=== PATIENT | male | born 1945 | race Caucasian/White ===

== ENCOUNTER → 2017-05-21 08:55 | Outpatient (CLI) | payer MEDICARE, SELFPAY ==
[2017-05-21 09:37] LABS: Hematocrit 40.9 % (40-54); Hemoglobin 13.1 g/dl (13.0-16.5); Mean Corpuscular Volume 90.5 fL (80-94); Mean Platelet Vol. 10.6 fl (6.2-12.0); Platelet Count 222 K/mm3 (150-450); RBC Distribution Width CV 13.4 % (11.6-14.6); RBC Distribution Width SD 43.7 fl (35.1-43.9); Red Blood Count 4.52 M/mm3 (4.6-6.2); Scan Indicated on CBC? Y/N NO; White Blood Count 6.3 K/mm3 (4.4-11.0)
[2017-05-21 10:00] LABS: Hemoglobin A1c 7.3 % (4.2-6.3)
[2017-05-21 10:19] LABS: AST(SGOT) 14 U/L (15-37); Alanine Aminotransfer ALT/SGPT 19 U/L (16-61); Albumin, Serum 3.7 g/dL (3.2-5.0); Alkaline Phosphatase 70 U/L (45-117); Anion Gap 6 (5-15); BUN 16 mg/dL (7-18); BUN/Creat Ratio 20.4 RATIO (10-20); Calcium,Total 8.8 mg/dL (8.5-10.1); Chloride 102 mmol/L (98-107); Cholesterol 129 mg/dL (200); Creatinine, Serum 0.78 mg/dL (0.70-1.30); EST Glomerular Filtration Rate 103 mL/min (>60); Est Glom Filt Rate - Afr Amer 125 mL/min (>60); Ferritin 14 ng/mL (26-388); Globulin 3.6 g/dL (2.2-4.2); Glucose 111 mg/dL (74-106); High Density Lipoprotein 28 mg/dL; Iron 88 ug/dL (65-175); Iron Binding Capacity,Total 348 ug/dL (250-450); Potassium 4.5 mmol/L (3.5-5.1); Protein, Total 7.3 g/dL (6.4-8.2); Sodium Level 142 mmol/L (136-145); Triglycerides 205 mg/dL; Very Low Density Lipoprotein 41 mg/dL (5-40)
[2017-05-21 10:38] LABS: PTHIN 62.8 pg/mL (18.4-80.1)
[2017-05-21 10:40] LABS: Vitamin B12 205 pg/mL (211-911); Vitamin D,25 Hydroxy 15.8 ng/mL (29.95-100.01)
[2017-05-24 12:23] LABS: Copper, Serum or Plasma 102 ug/dL (72-166); Vitamin B1, Thiamine 119.6 nmol/L (66.5-200.0); Zinc, Plasma or Serum 73 ug/dL (56-134)
== END ==
PROVIDERS: Family Provider Family Medicine; PCP Family Medicine; Visit Provider Family Medicine
DX: Z98.84 Bariatric surgery status (principal); E11.9 Type 2 diabetes mellitus without complications
CPT/HCPCS: 36415; 80053; 80061; 82306; 82525; 82607; 82728; 82746; 83036; 83540; 83550; 83970; 84425; 84630; 85027

== ENCOUNTER → 2017-06-14 13:02 | Outpatient (CLI) | payer MEDICARE, SELFPAY ==
--- NOTE | 2017-06-14 13:03 | RAD_ITS ---
STUDY: X-RAY - RIGHT KNEE REASON FOR EXAM: Male, 71 years old. Right knee pain. TECHNIQUE: 4 view(s) of the knee. COMPARISON: None. FINDINGS: There is generalized osteopenia. There is moderate to severe arthrosis of the medial femorotibial compartment. There is mild arthrosis of the lateral femorotibial compartment. There is moderate to severe arthrosis of the patellofemoral compartment with lateral subluxation and tilt of the patella. There is a small joint effusion with multiple small intra-articular osteochondral bodies. There is vascular calcification. RAD/Knee 4 or More Views IMPRESSION: Osteopenia with tricompartmental osteoarthritic changes as described. Small effusion with multiple intra-articular osteochondral bodies. Electronically Signed: Bienvenido Case MD at 11:31 EDT , Service support ,
== END ==
PROVIDERS: Family Provider Family Medicine; PCP Family Medicine; Visit Provider Orthopaedic Surgery
DX: M25.561 Pain in right knee (principal)
CPT/HCPCS: 73564

== ENCOUNTER → 2017-10-23 08:35 | Outpatient (CLI) | payer MEDICARE, SELFPAY | PROVIDERS: Family Provider Family Medicine; PCP Family Medicine | DX: I49.9 Cardiac arrhythmia, unspecified (principal) | CPT/HCPCS: 93005 ==

== ENCOUNTER → 2019-09-29 06:56 | Outpatient (CLI) | payer MEDICARE, MEDICAID, SELFPAY ==
[2019-09-29 10:42] LABS: Hematocrit 40.5 % (40-54); Hemoglobin 12.8 g/dL (13.0-16.5); Mean Corp Hgb Conc 31.6 g/dL (32-36); Mean Corpuscular Hgb 29.6 pg (27.0-32.0); Mean Corpuscular Volume 93.5 fL (80-94); Mean Platelet Vol. 11.2 fl (6.2-12.0); Platelet Count 241 K/mm3 (150-450); RBC Distribution Width CV 12.3 % (11.6-14.6); RBC Distribution Width SD 42.7 fl (35.1-43.9); Red Blood Count 4.33 M/mm3 (4.6-6.2); White Blood Count 6.6 K/mm3 (4.4-11.0)
[2019-09-29 11:07] LABS: Hemoglobin A1c 7.5 % (3.8-5.6)
[2019-09-29 11:37] LABS: Vitamin B12 270 pg/mL (211-911); Vitamin D,25 Hydroxy 41.2 ng/mL
[2019-09-29 11:42] LABS: ALB/GLOB Ratio 1.1 RATIO (0.9-2.4); AST(SGOT) 19 U/L (15-37); Alanine Aminotransfer ALT/SGPT 20 U/L (16-61); Albumin, Serum 3.8 g/dL (3.2-5.0); Alkaline Phosphatase 62 U/L (45-117); Anion Gap 6 (5-15); BUN 11 mg/dL (7-18); BUN/Creat Ratio 16.5 RATIO (10-20); Calcium,Total 8.8 mg/dL (8.5-10.1); Chloride 104 mmol/L (98-107); Cholesterol 132 mg/dL (200); Creatinine, Serum 0.66 mg/dL (0.70-1.30); EST Glomerular Filtration Rate 124 mL/min (>60); Est Glom Filt Rate - Afr Amer 150 mL/min (>60); Globulin 3.6 g/dL (2.2-4.2); Glucose 119 mg/dL (74-106); High Density Lipoprotein 31 mg/dL; Magnesium 2.1 mg/dL (1.6-2.6); Potassium 3.9 mmol/L (3.5-5.1); Protein, Total 7.4 g/dL (6.4-8.2); Sodium Level 140 mmol/L (136-145); Thyroid Stim Hormone (TSH) 2.79 uIU/mL (0.358-3.74); Triglycerides 189 mg/dL; Very Low Density Lipoprotein 38 mg/dL (5-40)
== END ==
PROVIDERS: PCP Student in an Organized Health Care Education/Training Program; Referring Provider Student in an Organized Health Care Education/Training Program; Visit Provider Student in an Organized Health Care Education/Training Program
DX: E53.8 Deficiency of other specified B group vitamins (principal); N40.1 Benign prostatic hyperplasia with lower urinary tract symptoms; E11.9 Type 2 diabetes mellitus without complications; E83.42 Hypomagnesemia; E55.9 Vitamin D deficiency, unspecified; R80.9 Proteinuria, unspecified
CPT/HCPCS: 36415; 80053; 80061; 82306; 82607; 83036; 83735; 84153; 84443; 85027

== ENCOUNTER 2019-10-30 10:00 | Outpatient (RCR) | payer MEDICARE, MEDICAID, SELFPAY ==
--- NOTE | 2019-10-21 10:14 | HP.PTEVAL_ITS ---
Patient's Visit Information MARIETTA SMALLWOOD is a 74 year old M referred to Physical Therapy by Dr. Miguel Huntley DO with a diagnosis of PAIN IN LEFT SHOULDER. Date of Evaluation: 10/21/19 Physical Therapist: Negrito Morocho, PT, Cert MDT, OCS - Visit Plan Frequency: 2x /Week Duration: 4 Weeks Plan: PT INTERVENTIONS ROM SHOULDER ,MANUAL THERAPY G-H,STRENGTHENING RTC/SCAPULAR,CERVICAL/POSTURAL EX'S AND MODALTIES NEEDED - Subjective This 74 y/o male presents to physical therapy with left shoulder pain .Patient has had left shoulder pain for about [address] x-rays OA ,no MEDS. Recommended PT. No trauma. Location left shoulder pain cervical spine and scapular. Aggravating factors lifting ,[place] activies ,hanging down alot ,sleepin on left side. Aleviating factors Ibprobrin. Patient has occassional parathesia/tingling . Patient symptoms affects ADLS',housework tasks and function.Patient condtion affects QOL.Patient has Silver Sneakers. SOCIAL: . VOCATION: retired - Pain Left Shoulder Pain Intensity (Out of 10): 5 Pain Intensity Range: 10 Left Neck Pain Intensity (Out of 10): 3 Pain Intensity Range: 10 - Objective POSTURE:mild foward posture,rounded shoulders mod ,foward head. NEURO: denies parathesia/tingling,reflexes C5-6-7 1/. PALAPTION: UT/levator. AROM SHOULDER : flexion 100 degrees,abduction 90 degrees,ER 65 degrees,S1 pain palnes. PROM: shoulder flexion/abd 150 degrees ERP. CAPSULAR ASSESSORY : mod limited all planes. CERVICAL ROM: flexion min loss,lateral flexion/rotation mod loss,extension mod loss. MMT: RTC 4/5 ,deltoid 4-5/ - Special Tests C/S Radiculapathy - Left Upper limb tension test: Negative C/S Radiculapathy - Right Upper limb tension test: Negative C/S Radiculapathy - Left Spurlings: Positive C/S Radiculapathy - Right Spurlings: Negative C/S Radiculapathy - Left Cervical distraction: Negative C/S Radiculapathy - Right Cervical distraction: Negative Sharp Jonna: Negative Vertebral Artery Test: Negative Alar Ligament Test: Negative L Shoulder External Rotation Lag Test - RC Tear: Negative L Shoulder Lift Off Test - Subscapular Tear: Negative L Shoulder Drop Sign - IS Test: Negative L Shoulder Empty Can - SS: Negative L Shoulder Belly Press - SupScap: Negative L Shoulder Neer - Impingement: Positive L Shoulder Huffman Jorge Alberto - Impingement: Positive L Shoulder Shrug Sign - OA/Adhesive Capsulitis: Positive - Goals Goal 1:: Patient be I with HEP Goal Time Frame: 4-6 Weeks Goal 2:: Improve posture for ADL'S Goal Time Frame: 4-6 Weeks Goal 3:: Patient to improve left shoulder ROM 125 degrees flexion/abd and ER 80 degrees to improve function. Goal Time Frame: 4-6 Weeks Goal 4:: Patient to decrease left shoulder pain by 50% or > to improve function. Goal Time Frame: 4-6 Weeks Goal 5:: Patient to improve quick dash shoulder 5 points or> to improve QOL AND FUNCTION Goal Time Frame: 4-6 Weeks - Rehabilitation Potential Physical Therapy Diagnosis: This patient has left shoulder pain with pain poor ROM with capsular tighness ,postural deficits causing cervical pain with rounded shouders along with weaknes thus benifit from skilled PT Rehabilitation Potential: Good - Anticipated Interventions Patient/Client Instruction: Educate patient on: Condition, Plan of Care For the Purpose of:: To decrease pain, To increase ROM, To improve nutrient delivery to tissue, To increase oxygenation perfusion, To improve muscle performance and motor function, To improve ability to perform ADL's, To increase tolerance to activity/condition/position, To improve health of tissue, To decrease soft tissue restriction, To increase flexibility/ROM, To improve ability to perform tasks related to life management Therapeutic Exercise to Include: Strength training, Passive ROM, Active ROM, Scapular Strength/Stabilization For the Purpose of:: To decrease pain, To increase ROM, To improve muscle performance and motor function, To increase tolerance to activity/condition/position, To improve health of tissue, To decrease soft tissue restriction, To increase flexibility/ROM Manual Therapy Techniques to Include: Mobilization Comment: G-H For the Purpose of:: To decrease pain, To increase ROM, To improve gait and locomotor functions, To decrease soft tissue restriction, To increase flexibility/ROM TENS: Yes IF ES: Yes Cryotherapy (ice pack, ice massage): Yes Thermo therapy (hot pack): Yes Ultrasound (thermal/non thermal): Yes For the Purpose of:: To decrease pain, To increase ROM, To improve health of tissue, To decrease soft tissue restriction Thank you for the opportunity to evaluate your patient. For Medicare and Medicare HMO plans, please review the plan of care and approve it. It will need to be FAXED BACK to us at [phone] for Medicare purposes. For Medicare only, by signing this I certify the plan of care. Please let me know if there are questions or concerns regarding this plan of care. Physician Signature: ____Date:
--- NOTE | 2019-11-18 13:44 | HP.PTEVAL_ITS ---
Patient's Visit Information MARIETTA SMALLWOOD is a 74 year old M referred to Physical Therapy by Dr. Miguel Huntley DO with a diagnosis of PAIN IN LEFT SHOULDER. Date of Evaluation: 10/21/19 Physical Therapist: Negrito Morocho, PT, Cert MDT, OCS - Visit Plan Frequency: 2x /Week Duration: 4 Weeks Plan: PT INTERVENTIONS ROM SHOULDER, MANUAL THERAPY G-H, STRENGTHENING RTC/SCAPULAR, CERVICAL/POSTURAL EX'S AND MODALTIES NEEDED - Subjective This 74 y/o male presents to physical therapy with left shoulder pain .Patient has had left shoulder pain for about [address] x-rays OA ,no MEDS. Recommended PT. No trauma. Location left shoulder pain cervical spine and scapular. Aggravating factors lifting ,[place] activies ,hanging down alot ,sleepin on left side. Aleviating factors Ibprobrin. Patient has occassional parathesia/tingling . Patient symptoms affects ADLS',housework tasks and function.Patient condtion affects QOL.Patient has Silver Sneakers. SOCIAL: . VOCATION: retired - Pain Left Shoulder Pain Intensity (Out of 10): 5 Pain Intensity Range: 10 Left Neck Pain Intensity (Out of 10): 0 Pain Intensity Range: 10 - Objective POSTURE:mild foward posture,rounded shoulders mod ,foward head. NEURO: denies parathesia/tingling,reflexes C5-6-7 1/3. PALAPTION: UT/levator. AROM SHOULDER : flexion 100 degrees,abduction 90 degrees,ER 65 degrees,S1 pain palnes. PROM: shoulder flexion/abd 150 degrees ERP. CAPSULAR ASSESSORY : mod limited all planes. CERVICAL ROM: flexion min loss,lateral flexion/rotation mod loss,extension mod loss. MMT: RTC 4/5 ,deltoid 4-5/ - Special Tests C/S Radiculapathy - Left Upper limb tension test: Negative C/S Radiculapathy - Right Upper limb tension test: Negative C/S Radiculapathy - Left Spurlings: Positive C/S Radiculapathy - Right Spurlings: Negative C/S Radiculapathy - Left Cervical distraction: Negative C/S Radiculapathy - Right Cervical distraction: Negative Sharp Jonna: Negative Vertebral Artery Test: Negative Alar Ligament Test: Negative L Shoulder External Rotation Lag Test - RC Tear: Negative L Shoulder Lift Off Test - Subscapular Tear: Negative L Shoulder Drop Sign - IS Test: Negative L Shoulder Empty Can - SS: Negative L Shoulder Belly Press - SupScap: Negative L Shoulder Neer - Impingement: Positive L Shoulder Huffman Jorge Alberto - Impingement: Positive L Shoulder Shrug Sign - OA/Adhesive Capsulitis: Positive - Goals Goal 1:: Patient be I with HEP Goal Time Frame: 4-6 Weeks Goal 2:: Improve posture for ADL'S Goal Time Frame: 4-6 Weeks Goal 3:: Patient to improve left shoulder ROM 125 degrees flexion/abd and ER 80 degrees to improve function. Goal Time Frame: 4-6 Weeks Goal 4:: Patient to decrease left shoulder pain by 50% or > to improve function. Goal Time Frame: 4-6 Weeks Goal 5:: Patient to improve quick dash shoulder 5 points or> to improve QOL AND FUNCTION Goal Time Frame: 4-6 Weeks - Rehabilitation Potential Physical Therapy Diagnosis: This patient has left shoulder pain with pain poor ROM with capsular tighness ,postural deficits causing cervical pain with rounded shouders along with weaknes thus benifit from skilled PT Rehabilitation Potential: Good - Anticipated Interventions Patient/Client Instruction: Educate patient on: Condition, Plan of Care For the Purpose of:: To decrease pain, To increase ROM, To improve nutrient delivery to tissue, To increase oxygenation perfusion, To improve muscle performance and motor function, To improve ability to perform ADL's, To increase tolerance to activity/condition/position, To improve health of tissue, To decrease soft tissue restriction, To increase flexibility/ROM, To improve ability to perform tasks related to life management Therapeutic Exercise to Include: Strength training, Passive ROM, Active ROM, Scapular Strength/Stabilization For the Purpose of:: To decrease pain, To increase ROM, To improve muscle performance and motor function, To increase tolerance to activity/condition/position, To improve health of tissue, To decrease soft tissue restriction, To increase flexibility/ROM Manual Therapy Techniques to Include: Mobilization Comment: G-H For the Purpose of:: To decrease pain, To increase ROM, To improve gait and locomotor functions, To decrease soft tissue restriction, To increase flexibility/ROM TENS: Yes IF ES: Yes Cryotherapy (ice pack, ice massage): Yes Thermo therapy (hot pack): Yes Ultrasound (thermal/non thermal): Yes For the Purpose of:: To decrease pain, To increase ROM, To improve health of tissue, To decrease soft tissue restriction Thank you for the opportunity to evaluate your patient. For Medicare and Medicare HMO plans, please review the plan of care and approve it. It will need to be FAXED BACK to us at [phone] for Medicare purposes. For Medicare only, by signing this I certify the plan of care. Please let me know if there are questions or concerns regarding this plan of care. Physician Signature: Date:
--- NOTE | 2020-02-18 14:34 | HP.PT.NRP ---
MARIETTA SMALLWOOD was seen in my office for initial evaluation on 10/21/19. The following Plan of Care was established for this patient: Initial Frequency: 2x /Week Initial Duration: 4 Weeks Patient/Client Instruction: Educate patient on: Condition, Plan of Care For the Purpose of:: To decrease pain, To increase ROM, To improve nutrient delivery to tissue, To increase oxygenation perfusion, To improve muscle performance and motor function, To improve ability to perform ADL's, To increase tolerance to activity/condition/position, To improve health of tissue, To decrease soft tissue restriction, To increase flexibility/ROM, To improve ability to perform tasks related to life management Therapeutic Exercise to Include: Strength training, Passive ROM, Active ROM, Scapular Strength/Stabilization For the Purpose of:: To decrease pain, To increase ROM, To improve muscle performance and motor function, To increase tolerance to activity/condition/position, To improve health of tissue, To decrease soft tissue restriction, To increase flexibility/ROM Manual Therapy Techniques to Include: Mobilization Comment: G-H For the Purpose of:: To decrease pain, To increase ROM, To improve gait and locomotor functions, To decrease soft tissue restriction, To increase flexibility/ROM TENS: Yes IF ES: Yes Cryotherapy (ice pack, ice massage): Yes Thermo therapy (hot pack): Yes Ultrasound (thermal/non thermal): Yes For the Purpose of:: To decrease pain, To increase ROM, To improve health of tissue, To decrease soft tissue restriction This patient was last seen in our office . Pertinent comments regarding their Physical therapy will appear below: Patient is d/c from PT due to per . At this point I will be discontinuing this patient from physical therapy. I would be happy to see this patient again in the future if found appropriate by the physician. Thank you! Negrito Morocho, PT, Cert MDT, OCS
== END 2019-10-31 19:00 | disposition home or self-care (01) ==
LOC: PT 10:00
PROVIDERS: PCP Student in an Organized Health Care Education/Training Program; Visit Provider Student in an Organized Health Care Education/Training Program
DX: M25.512 Pain in left shoulder (principal)
CPT/HCPCS: 97110; 97162